=== PATIENT | male | born 1955 | race Hispanic/Latino ===

== ENCOUNTER 2017-03-16 16:46 | Emergency (ER) | payer OTHER ==
[2017-03-16 17:38] LABS: Basophils % (Auto) 0.9 % (0.0-1.8); Eosinophils % (Auto) 0.9 % (0.0-4.3); Hematocrit 42.3 % (35.5-45.6); Hemoglobin 14.2 gm/dl (11.8-15.2); Mean Corpuscular HGB Conc 34 % (32-34); Mean Corpuscular Hemoglobin 32 pg (28-32); Mean Corpuscular Volume 95 fl (84-94); Platelet Count 277 K/mm3 (140-440); Red Blood Count 4.46 M/mm3 (3.65-5.03); Red Cell Distribution Width 13.2 % (13.2-15.2)
[2017-03-16 17:47] LABS: INR 0.85 (0.87-1.13)
[2017-03-16 17:48] LABS: Anion Gap 21 mmol/L; BUN/Creatinine Ratio 19; Blood Urea Nitrogen 17 mg/dL (9-20); Calcium 9.2 mg/dL (8.4-10.2); Carbon Dioxide 22 mmol/L (22-30); Chloride 95.7 mmol/L (98-107); Glucose 99 mg/dL (75-100); Potassium 4.3 mmol/L (3.6-5.0); Sodium 134 mmol/L (137-145)
[2017-03-16 17:49] LABS: Partial Thromboplastin Time 28.4 Sec. (24.2-36.6)
--- NOTE | 2017-03-16 18:07 | Cat Scan Report ---
FINAL REPORT EXAM: CT HEAD/BRAIN WO CON HISTORY: neuro deficits \T\lt; 6hrs or sx present upon awakening TECHNIQUE: CT head without contrast PRIORS: None. FINDINGS: There is focal hypodensity within the left deep temporal/parietal white matter which could be acute or chronic finding. No acute intra or extra-axial hemorrhage is identified No evidence for midline shift or mass effect. Ventricles and sulci are within normal limits. There is density present the visualized portion of the sphenoid sinus Note is made of some limitation in the exam. Inferior tips of the temporal lobes are incompletely included in the study. IMPRESSION: Hypodensity in the left deep temporal/parietal white matter which may be acute or chronic finding. MRI suggested for further evaluation Partially limited study. Inferior tips of the temporal lobes are not included in the field of view
[2017-03-17 01:09] VITALS: BP 189/94
== END 2017-03-17 02:45 | disposition left against medical advice (07) ==
LOC: ED 16:46
DX: R06.02 Shortness of breath (principal); Z53.21 Procedure and treatment not carried out due to patient leaving prior to being seen by health care provider
CPT/HCPCS: 36415; 70450; 80048; 84484; 85025; 85610; 85670; 85730